=== PATIENT | male | born 1985 ===

== ENCOUNTER 2016-12-23 22:32 | Emergency (ER) | payer SELFPAY ==
[2016-12-23 22:46] VITALS: BP 138/78; PULSE 82; RESP 16; TEMP 98.2; O2SAT 97
[2016-12-23] MEDS ORDERED: Amoxicillin-Clav 875-125 mg Tab PO STA (22:46)
--- NOTE | 2016-12-23 22:58 | ED PDOC ---
Arrival/HPI - General Chief Complaint: Allergic Reaction Time Seen by Provider: 12/23/16 22:46 Historian: Patient - History of Present Illness Narrative History of Present Illness (Text): 12/23/16 22:48 31 y/o male, pmh including tonsillitis, nkda, c/o throat pain x 3 days with no fall or trauma. Pt. stated that he has tonsillitis which he trying to scratch on the lt. tonsil which was bleeding but resolved. Pt. is here tonight for evaluation. Pt. stated that he took levaquin 500mg po about 7 hours ago and developed the bilateral hand itching but resolved, no facial or lip swelling, no fever or chills, no palpitation, no other medical or psychological complaints. Past Medical History - Provider Review Nursing Documentation Reviewed: Yes - Infectious Disease Hx of Infectious Diseases: None - Cardiac Hx Hypertension: Yes - Pulmonary Hx Asthma: Yes Other/Comment: Seasonal allergies - Integumentary Hx Eczema: Yes - Psychiatric Hx Substance Use: No - Surgical History Other/Comment: Testicular torsion Family/Social History - Physician Review Nursing Documentation Reviewed: Yes Family/Social History: Unknown Family HX Smoking Status: Never Smoked Hx Alcohol Use: No Hx Substance Use: No Allergies/Home Meds Allergies/Adverse Reactions: Allergies No Known Allergies Allergy (Verified 12/23/16 22:46) Review of Systems - Review of Systems Constitutional: absent: Fatigue Eyes: absent: Vision Changes, Eye Pain ENT: Sore Throat. absent: Hearing Changes Respiratory: absent: SOB, Cough Cardiovascular: absent: Chest Pain Gastrointestinal: absent: Abdominal Pain, Nausea, Vomiting Skin: absent: Rash, Pruritis, Skin Lesions, Laceration, Abscess, Ulcer, Cellulitis Neurological: absent: Headache, Dizziness, Gait Changes Psychiatric: absent: Anxiety, Depression, Suicidal Ideation Physical Exam Vital Signs Reviewed: Yes Vital Signs Temp Pulse Resp BP Pulse Ox 12/23/16 22:41 98.2 F 82 16 138/78 97 Temperature: Afebrile Blood Pressure: Normal Pulse: Regular Respiratory Rate: Normal Appearance: Positive for: Well-Appearing, Non-Toxic, Comfortable Pain Distress: Mild Mental Status: Positive for: Alert and Oriented X 3 - Systems Exam Head: Present: Atraumatic, Normocephalic Pupils: Present: PERRL Extroacular Muscles: Present: EOMI Conjunctiva: Present: Normal Mouth: Present: Moist Mucous Membranes, Normal Lips, Normal Tounge, Normal Teeth , Other (no angioedema) Pharnyx: Present: ERYTHEMA, TONSILS ENLARGED. No: Peritonsilar Swelling, Uvular Deviation, Muffled/Hoarse Voice, Strider, Soft Palate/Uvular Edema Nose (External): Present: Atraumatic. No: Abrasion, Contusion, Laceration, Lesions Nose (Internal): Present: Normal Inspection, No Active Bleeding. No: Rhinorrhea , Septal Hematoma, Epistaxis Neck: Present: Normal Range of Motion Respiratory/Chest: Present: Clear to Auscultation, Good Air Exchange. No: Respiratory Distress, Accessory Muscle Use Cardiovascular: Present: Regular Rate and Rhythm, Normal S1, S2. No: Murmurs Abdomen: Present: Normal Bowel Sounds. No: Tenderness, Distention, Peritoneal Signs Back: Present: Normal Inspection Upper Extremity: Present: Normal Inspection. No: Cyanosis, Edema Lower Extremity: Present: Normal Inspection. No: Edema Neurological: Present: GCS=15, CN II-XII Intact, Speech Normal, Gait Normal, Memory Normal Skin: Present: Warm, Dry, Normal Color. No: Rashes Psychiatric: Present: Alert, Oriented x 3, Normal Insight, Normal Concentration Medical Decision Making ED Course and Treatment: 12/23/16 23:01 -Pt. has no signs of allergic reaction, little to no itching. -Decadron/augmentin/benadryl -Discharge home with zyrtec, motrin, augmentin, stay hydrated, salt water gargling, soft food diet, stay hydrated, follow up with your own pmd and ENT within 2 days, return to the ER for any new or worsening signs or symptoms. - Medication Orders Current Medication Orders: Amoxicillin/Clavulanate Potassium (Augmentin 875 Mg-125 Mg Tab) 1 tab PO STAT STA PRN Reason: Protocol Stop: 12/23/16 22:47 Dexamethasone (Decadron Inj) 10 mg IM STAT STA Stop: 12/23/16 22:47 - PA / [facility]ORT PRE [employer]OOKER / Resident Statement /DO has reviewed & agrees with the documentation as recorded. Disposition/Present on Arrival - Present on Arrival Any Indicators Present on Arrival: No History of DVT/PE: No History of Uncontrolled Diabetes: No Urinary Catheter: No History of Decub. Ulcer: No History Surgical Site Infection Following: None - Disposition Have Diagnosis and Disposition been Completed?: Yes Diagnosis: Tonsillitis Disposition: HOME/ ROUTINE Disposition Time: 23:03 Patient Plan: Discharge Condition: GOOD Additional Instructions: -Discharge home with zyrtec, motrin, augmentin, stay hydrated, salt water gargling, soft food diet, stay hydrated, follow up with your own pmd and ENT within 2 days, return to the ER for any new or worsening signs or symptoms. Prescriptions: Amoxicillin/Clavulanate [Augmentin 875 MG-125 MG] 1 tab PO BID #20 tab Cetirizine HCl [Zyrtec] 10 mg PO DAILY #7 capsule Ibuprofen [Motrin] 600 mg PO QID PRN #24 tab PRN Reason: Other Methylprednisolone [Medrol Dose Pack (21 tabs)] 4 mg PO DAILY #21 mg Referrals: Dc Zamora DO [Staff Provider] - Follow up with primary Forms: [facility] (Bulgarian), WORK NOTE
== END 2016-12-23 23:12 | disposition home or self-care (01) ==
LOC: ED 22:32
DX: J03.90 Acute tonsillitis, unspecified (principal)
CPT/HCPCS: 96372; 99284; J1100